=== PATIENT | male | born 1995 | race Two or more races ===

== ENCOUNTER 2024-08-30 09:06 | Emergency (ER) | payer SELFPAY ==
[2024-08-30] MEDS ORDERED: Dexamethasone 10 MG/ML VIAL ONE (09:28)
[2024-08-30] MEDS ORDERED: Cyclobenzaprine 10 MG TAB ONE (09:28)
[2024-08-30] MEDS ORDERED: Ketorolac Tromethamine 30 MG (1 mL) VIAL ONE (09:28)
== END 2024-08-30 10:35 | disposition home or self-care (01) ==
LOC: CSHERS 09:06
DX: M54.2 Cervicalgia (principal)
CPT/HCPCS: 96372; 99283; J1100; J1885